=== PATIENT | female | born 1965 | race Caucasian/White ===

== ENCOUNTER 2025-02-08 15:19 | Observation (INO) ==
[2025-02-08 16:57] LABS: BASOPHILS % (AUTO) 0.6 % (0.2-1.0); EOSINOPHILS # (AUTO) 0.5 x10^3/uL (0.0-0.2); EOSINOPHILS % (AUTO) 5.9 % (0.9-2.9); HEMATOCRIT 37.8 % (36.0-47.0); HEMOGLOBIN 12.9 g/dL (12.0-16.0); LYMPHOCYTES # (AUTO) 2.5 X10^3/uL (1.3-2.9); LYMPHOCYTES % (AUTO) 32.2 % (21.0-51.0); MEAN CORPUSCULAR HEMOGLOBIN 30.9 pg (27.0-34.0); MEAN CORPUSCULAR HGB CONC 34.1 g/dL (33.0-35.0); MEAN CORPUSCULAR VOLUME 90.5 fL (80.0-100.0); MEAN PLATELET VOLUME 5.8 fL (7.4-11.0); MONOCYTES # (AUTO) 0.7 x10^3/uL (0.3-0.8); MONOCYTES % (AUTO) 8.8 % (0.0-13.0); NEUTROPHILS % (AUTO) 52.5 % (42.0-75.0); PLATELET COUNT 211 X10^3/uL (150.0-450.0); RED BLOOD COUNT 4.18 X10^6/uL (3.5-5.4); RED CELL DISTRIBUTION WIDTH 13.9 % (11.6-16.5); WHITE BLOOD COUNT 7.6 X10^3/uL (3.6-10.0)
[2025-02-08 17:11] LABS: ALANINE AMINOTRANSFERASE 24 Units/L (12-78); ALBUMIN 3.4 g/dL (3.4-5.0); ALKALINE PHOSPHATASE 65 Units/L (46-116); ASPARTATE AMINO TRANSFERASE 18 Units/L (15-37); BLOOD UREA NITROGEN 10 mg/dL (7-18); CALCIUM 8.7 mg/dL (8.5-10.1); CARBON DIOXIDE 33.1 mmol/L (21-32); CHLORIDE 101 mmol/L (98-107); CREATININE 0.81 mg/dL (0.55-1.02); GLUCOSE 105 mg/dL (65-99); POTASSIUM 3.6 mmol/L (3.5-5.1); SODIUM 139 mmol/L (136-145); TOTAL PROTEIN 6.8 g/dL (6.4-8.2); eGFR NON BLACK RACES > 60 (>60)
[2025-02-08] MEDS: NS 250 ML IV 25 ML IV PRN (17:26)
[2025-02-08] MEDS: D5 1/2 NS 1,000 ML 1,000 ML IV SCH (17:26)
[2025-02-08] MEDS: ZOFRAN INJ 4 MG VIAL IVP PRN (17:26)
[2025-02-08] MEDS: ZOSYN VIAL 3.375 GRAMS 3.375 G in NS 100 ML IV 100 ML IV SCH (17:26)
[2025-02-08] MEDS: DILAUDID INJ IVP PRN (17:27)
[2025-02-08 17:53] VITALS: BMI 30.2
[2025-02-08] MEDS: FLAGYL IV PREMIX 500 MG BAG 500 MG/100 ML BAG IV SCH (20:38)
[2025-02-09] MEDS: HIBICLENS WASH EXT ONE (05:24)
[2025-02-09 06:35] LABS: BASOPHILS # (AUTO) 0.1 X10^3/uL (0.0-0.1); EOSINOPHILS # (AUTO) 0.4 x10^3/uL (0.0-0.2); EOSINOPHILS % (AUTO) 6.1 % (0.9-2.9); HEMATOCRIT 35.4 % (36.0-47.0); HEMOGLOBIN 12.4 g/dL (12.0-16.0); LYMPHOCYTES # (AUTO) 2.5 X10^3/uL (1.3-2.9); LYMPHOCYTES % (AUTO) 40.9 % (21.0-51.0); MEAN CORPUSCULAR HEMOGLOBIN 31.8 pg (27.0-34.0); MEAN CORPUSCULAR HGB CONC 34.9 g/dL (33.0-35.0); MEAN CORPUSCULAR VOLUME 90.9 fL (80.0-100.0); MEAN PLATELET VOLUME 6.6 fL (7.4-11.0); MONOCYTES # (AUTO) 0.6 x10^3/uL (0.3-0.8); MONOCYTES % (AUTO) 9.4 % (0.0-13.0); NEUTROPHILS # (AUTO) 2.6 x10^3/uL (2.2-4.8); NEUTROPHILS % (AUTO) 42.6 % (42.0-75.0); PLATELET COUNT 153 X10^3/uL (150.0-450.0); RED CELL DISTRIBUTION WIDTH 13.9 % (11.6-16.5); WHITE BLOOD COUNT 6.1 X10^3/uL (3.6-10.0)
[2025-02-09 06:48] LABS: ALANINE AMINOTRANSFERASE 23 Units/L (12-78); ALBUMIN 3.2 g/dL (3.4-5.0); ALKALINE PHOSPHATASE 58 Units/L (46-116); ASPARTATE AMINO TRANSFERASE 23 Units/L (15-37); BLOOD UREA NITROGEN 7 mg/dL (7-18); CALCIUM 8.4 mg/dL (8.5-10.1); CARBON DIOXIDE 29.3 mmol/L (21-32); CHLORIDE 103 mmol/L (98-107); CREATININE 0.67 mg/dL (0.55-1.02); GLUCOSE 93 mg/dL (65-99); POTASSIUM 4.3 mmol/L (3.5-5.1); SODIUM 140 mmol/L (136-145); TOTAL PROTEIN 6.4 g/dL (6.4-8.2); eGFR NON BLACK RACES > 60 (>60)
[2025-02-09 07:08] LABS: PLATELET MORPHOLOGY COMMENT NORMAL (NORMAL)
[2025-02-09] MEDS: LOVENOX INJ 40 MG SYR SC SCH (10:40)
[2025-02-09] MEDS: DIPRIVAN VIAL 20 ML ONE (11:45)
[2025-02-09] MEDS: ZOFRAN INJ 4 MG VIAL ONE (11:45)
[2025-02-09] MEDS: REGLAN INJ 10 MG VIAL ONE (11:45)
[2025-02-09] MEDS: DECADRON INJ ONE (11:45)
[2025-02-09] MEDS: PEPCID 20 MG VIAL ONE (11:45)
[2025-02-09] MEDS: VERSED ONE (11:48)
[2025-02-09] MEDS: FENTANYL VIAL INJ 100 mcg ONE (11:48)
[2025-02-09] MEDS: LR 1,000 ML IV 1,000 ML IV ONE (12:00)
[2025-02-09] MEDS: LR 1,000 ML IV 900 ML IV PRN (12:15)
[2025-02-09] MEDS: ZOFRAN INJ 4 MG VIAL IVP PRN (12:26)
[2025-02-09] MEDS: PEPCID 20 MG VIAL IVP PRN (12:27)
[2025-02-09] MEDS: KETAMINE HCL ONE (12:27)
[2025-02-09] MEDS: REGLAN INJ 10 MG VIAL IVP PRN (12:29)
[2025-02-09] MEDS: BETADINE SOLN ONE (12:31)
[2025-02-09] MEDS ORDERED: XYLOCAINE 2 % (PLAIN) ONE (12:31)
[2025-02-09] MEDS ORDERED: ULTANE GAS IN ONE (12:31)
[2025-02-09] MEDS ORDERED: PRECEDEX INJ VIAL ONE (12:31)
[2025-02-09] MEDS: VERSED IVP PRN (12:35)
[2025-02-09] MEDS: KETAMINE HCL IV PRN (12:38)
[2025-02-09] MEDS ORDERED: XYLOCAINE 2 % (PLAIN) PRN (12:39)
[2025-02-09] MEDS: DIPRIVAN VIAL 100 ML IVP PRN (12:39)
[2025-02-09] MEDS: DECADRON INJ IVP PRN (12:47)
[2025-02-09] MEDS: MARCAINE 0.5% ONE (12:50)
[2025-02-09] MEDS: EPHEDRINE SULFATE INJ ONE (12:53)
[2025-02-09] MEDS: FENTANYL VIAL INJ 100 mcg IVP PRN (12:54)
[2025-02-09] MEDS ORDERED: BENADRYL INJ 50 MG VIAL IVP PRN (13:00)
[2025-02-09] MEDS ORDERED: ZOFRAN INJ 4 MG VIAL IVP PRN (13:00)
[2025-02-09] MEDS ORDERED: BARHEMSYS INJ IVP PRN (13:00)
[2025-02-09] MEDS ORDERED: DILAUDID INJ IVP PRN (13:00)
[2025-02-09] MEDS: PRECEDEX INJ VIAL IVP PRN (13:02)
[2025-02-09] MEDS: EPHEDRINE SULFATE INJ IVP PRN (13:05)
[2025-02-10 10:09] VITALS: BP 119/67; PULSE 82; RESP 17; TEMP 97.6; O2SAT 96
== END 2025-02-10 10:30 | disposition home or self-care (01) ==
LOC: MED/SURG
PROVIDERS: ADMIT Surgery; ATTEND Surgery